=== PATIENT | male | born 1990 ===

== ENCOUNTER 2024-07-28 01:45 | Emergency (ER) | payer BC, SELFPAY ==
[2024-07-28 01:52] VITALS: BP 159/83; PULSE 71; RESP 16; TEMP 36.6; O2SAT 98; BMI 27.4
--- NOTE | 2024-07-28 02:00 | DI.RAD.S_ITS ---
PROCEDURE: XR FINGER LT MIN 2V INDICATIONS: L 2nd finger laceration, cut with hatchet TECHNIQUE: AP hand, 2 views of the 2nd finger(s) acquired. COMPARISON: None. FINDINGS: Bones: No fractures or dislocations. No suspicious bony lesions. Soft tissues: No suspicious soft tissue calcifications. Laceration of the distal 2nd digit. IMPRESSION: Laceration of the distal 2nd digit, without displaced fracture. Dictated by: Pawel Quinones M.D. on 07/28/2024 at 8:40 Approved by: Pawel Quinones M.D. on 07/28/2024 at 8:40
--- NOTE | 2024-07-28 02:15 | ED_ITS ---
HPI - Wound/Laceration General Chief Complaint: Wound/Laceration Stated Complaint: Laceration on finger, bleeding Time Seen by Provider: 07/28/24 02:00 Source: patient, RN notes reviewed and old records reviewed Mode of arrival: Ambulatory Limitations: no limitations History of Present Illness HPI narrative: 34-year-old male who states he was chopping wood with a hatchet earlier in caught his left can digit, patient states this occurred about 11:00 a.m. in the evening thought he has a bleeding stopped but restarted so he presents. Patient states slightly painful. Has had a similar type injury in the past that healed on its own. You presented because it would not stop bleeding. Has since stopped. Denies any other injuries. No known drug allergies. Related Data Previous Rx's Medication Instructions Recorded cephalexin 500 mg capsule 500 mg PO Q6H 5 days #20 caps 07/28/24 Allergies Allergy/AdvReac Type Severity Reaction Status Date / Time No Known Drug Allergies Allergy Verified 07/28/24 01:52 Review of Systems Review of Systems ROS Unobtainable: All systems reviewed & are unremarkable except as noted in HPI and below Patient History Social History Smoking Status: Never smoker Smoking Status: Never smoker Exam Narrative Exam Narrative: GENERAL: Alert and oriented x three, male in mild distress HEENT: Head normocephalic, atraumatic, EOMI, pupils reactive, face symmetric, moist mucous membranes NECK: Supple, full range of motion CARDIOVASCULAR: Regular rate and rhythm without murmurs, rubs or gallops. RESPIRATORY: Breath sounds equal bilaterally, no wheezes rales or rhonchi. EXTREMITIES: Normal range of motion, no clubbing or edema. Neurovascularly intact. Patient's 2nd finger on his left hand has a an avulsion injury of the distal tip has been quite clearly, it does go through the very end of the nail at an oblique angle. There is subcutaneous tissue exposed but no bone. Currently there was no active bleeding. Patient has sensation. No other bony tenderness with normal range of motion and cap refill less than 2 seconds in all 5 fingers. No other cuts or injuries appreciated. NEUROLOGICAL: Cranial nerves II through XII grossly intact. Moving all extremities SKIN: Warm, dry, no petechiae, no rashes or lesions. Initial Vital Signs Initial Vital Signs: Vital Signs Temperature 97.8 F 07/28/24 01:52 Pulse Rate 71 07/28/24 01:52 Respiratory Rate 16 07/28/24 01:52 Blood Pressure 159/83 H 07/28/24 01:52 Pulse Oximetry 98 07/28/24 01:52 Oxygen Delivery Method Room Air 07/28/24 01:52 Course Orders Ordered: ED Orders 07/28/24 02:00 XR finger LT min 2V Stat Discontinued Medications Bacitracin (Bacitracin Oint 0.9 Gm Pckt) 1 applic TOP NOW ONE Stop: 07/28/24 02:29 Last Admin: 07/28/24 02:43 Dose: 1 applic Documented By: LUISANA Vital Signs Vital signs: Vital Signs - 8 hr 07/28/24 01:52 Temperature 97.8 F Pulse Rate 71 Respiratory Rate 16 Blood Pressure 159/83 H Pulse Oximetry 98 Oxygen Delivery Method Room Air MDM - Wound/Laceration MDM Narrative Medical decision making narrative: Tdap up-to-date. Finger x-ray shows soft tissue swelling and laceration of the distal 2nd digit, no fx is seen. patient has an avulsion of the distal tip. No active bleeding. Small piece of Surgicel with bacitracin with non stick. Patient had keflex as cutting wood with hatchet. Will have to heal by secondary intention. Discharge Plan Departure Patient Disposition: Home Clinical Impression: Avulsion of finger tip Instructions: DI for Avulsion Laceration (Not Requiring Sutures) Activity Restrictions/Additional Instructions: Follow up for recheck if your wound is not healing in the next 1-2 weeks. Take antibiotics as directed. Wound Care: Keep wound(s) clean and dry. Wash daily with soap and water only. Do not use over the counter products (alcohol or peroxide)on the wounds unless instructed by a physician, you can use triple antibiotic ointment to the affected area. Keep covered with a nonstick dressing. If wound condition worsens (increased/expanding redness, developing fluid blisters, or worsening pain), either contact your doctor for an urgent re- assessment , or return to the Emergency Department. Return if fever greater than 100.4 Fahrenheit, increased swelling, increasing pain or worsening symptoms such as increased discharge or spreading redness. Prescriptions: New cephalexin 500 mg capsule 500 mg PO Q6H 5 Days Qty: 20 0RF Stand Alone Forms: Patient Portal/API/Survey
[2024-07-28] MEDS: BACITRACIN OINT 0.9 GM PCKT 1 APPLIC TOP (02:43)
== END 2024-07-28 02:49 | disposition home or self-care (01) ==
LOC: ED 02:36
PROVIDERS: Emergency Provider Emergency Medicine
DX: S61.211A Laceration without foreign body of left index finger without damage to nail, initial encounter (principal); W45.8XXA Other foreign body or object entering through skin, initial encounter
CPT/HCPCS: 73140; 99282; 99283